=== PATIENT | female | born 1950 ===

== ENCOUNTER 2023-12-31 09:30 | Day surgery (SDC) | payer OTHER ==
[2023-12-25 08:56] VITALS: BP 140/79
[2023-12-25 09:37] LABS: URINE APPEARANCE Clear; URINE BILIRRUBIN Negative (NEGATIVE); URINE BLOOD Negative; URINE COLOR Yellow; URINE GLUCOSE Negative (NEGATIVE); URINE KETONE Negative (NEGATIVE); URINE LEUKOCYTE Negative; URINE NITRATE Negative; URINE PROTEIN Negative (NEGATIVE); URINE UROBILINOGEN 0.2 E.U./dl
[2023-12-25 09:39] LABS: URINE BACTERIA 6.2 uL (0.0-1933); URINE EPITHELIAL CELLS 2.1 uL (0.0-38.8); URINE RBC 6.7 uL (0.0-20.8)
[2023-12-25 09:46] LABS: HEMATOCRIT 38.2 % (36.0-45.00); MEAN CELL VOLUME 95.3 fL (80.00-100.00); MEAN CORPUSCULAR HEMOGLOBIN 32.3 pg (27.00-32.0); MEAN CORPUSCULAR HGB CONC 33.9 g/dl (32.0-36.0); PLATELET COUNT 258 K/uL (150-450); RED BLOOD COUNT 4.01 M/uL (4.00-6.00); RED CELL DISTRIBUTION WIDTH 13.7 % (11.5-14.5)
[2023-12-25 09:48] LABS: URINE WBC 1.5 uL (0.0-23.2)
[2023-12-25 10:05] LABS: INR 1.06; PARTIAL THROMBOPLASTIN TIME 25.5 SECONDS (22.0-34.0); PROTHROMBIN TIME 11.5 SECONDS (9.0-11.5)
[2023-12-25 10:35] LABS: ALBUMIN 3.8 gm/dL (3.4-5.0); BILIRUBIN TOTAL 0.39 mg/dL (0.3-1.2); CALCIUM 9.9 mg/dL (8.5-10.1); CREATININE SERUM 0.57 mg/dL (0.55-1.02); GFR 103.97; GLOBULINA 3.8 G/DL (2.4-3.5); POTASSIUM 4.64 mEq/L (3.5-5.1); TOTAL PROTEIN 7.6 gm/dL (6.4-8.2)
[~2023-12-31] VITALS: Ht 152.4 cm; Wt 65.8 kg
[~2023-12-31 09:30] MED LIST: ZESTRIL40 M1 PO
[2023-12-31] MEDS ORDERED: EPINEPHRINE HCL/PF 1 MG/ML AMPUL IR ONE (14:00)
[2023-12-31] MEDS ORDERED: CEFAZOLIN SODIUM 1,000 MG VIAL IV ONE ×2 (14:00→15:30)
[2023-12-31] MEDS ORDERED: MORPHINE SULFATE 4 MG/ML VIAL IV ONE (14:00)
[2023-12-31] MEDS ORDERED: KETOROLAC TROMETHAMINE 60 MG VIAL IM ONE (14:00)
[2023-12-31] MEDS ORDERED: DUI500 PO (15:24)
[2023-12-31] MEDS ORDERED: TRAM1TAB98 PO (15:25)
[2023-12-31] MEDS ORDERED: MEPERIDINE HCL/PF 25 MG/ML VIAL IM PRN (15:30)
[2023-12-31] MEDS ORDERED: PROMETHAZINE HCL 25 MG/ML AMPUL IM PRN (15:30)
[2023-12-31] MEDS ORDERED: CEFADROXIL 500 MG CAPSULE PO SCH (21:00)
== END 2023-12-31 21:30 | disposition home or self-care (01) ==
LOC: CIR.AMB 09:30
PROVIDERS: ATTEND Orthopaedic Surgery Sports Medicine
DX: S83.231A Complex tear of medial meniscus, current injury, right knee, initial encounter (principal); M23.51 Chronic instability of knee, right knee; M22.41 Chondromalacia patellae, right knee; M67.51 Plica syndrome, right knee